=== PATIENT | female | born 1945 | race Caucasian/White ===

== ENCOUNTER 2024-04-10 10:47 | Emergency (ER) | payer MEDICARE ==
[~2024-04-10] VITALS: Ht 147.3 cm; Wt 42.0 kg
[2024-04-10] VITALS (12 sets, daily range): BP systolic 101–126; BP diastolic 57–67
[2024-04-10] MEDS ORDERED: PREDNISONE20 MG PO (13:04)
[2024-04-10] MEDS ORDERED: METHOCARBAMOL500 MG PO (13:04)
== END 2024-04-10 13:27 | disposition home or self-care (01) ==
LOC: ED 10:47
DX: M54.31 Sciatica, right side (principal); I10 Essential (primary) hypertension; M16.11 Unilateral primary osteoarthritis, right hip
CPT/HCPCS: J1100